=== PATIENT | female | born 1935 | race Caucasian/White ===

== ENCOUNTER 2023-09-24 13:44 | Emergency (ER) | payer BC, MEDICAID ==
[~2023-09-24] VITALS: Ht 152.4 cm; Wt 53.9 kg
[~2023-09-24 13:44] MED LIST: CALC0.2511; DILT120C46 PO; ESOM40CA PO; ESTR0.3T10 PO; HYDR12.522 PO; LIDO700A47 TP
[2023-09-24 13:51] VITALS: BP 123/75; PULSE 80; RESP 16; TEMP 98.2; O2SAT 99
== END 2023-09-24 16:40 | disposition left against medical advice (07) ==
LOC: ER 13:44
DX: I10 Essential (primary) hypertension (principal); Z53.21 Procedure and treatment not carried out due to patient leaving prior to being seen by health care provider
CPT/HCPCS: 99281

== ENCOUNTER 2024-05-16 13:39 | Emergency (ER) | payer BC, MEDICAID ==
[~2024-05-16] VITALS: Ht 152.4 cm; Wt 53.0 kg
[2024-05-16 14:39] LABS: BASOPHILS # (AUTO) 0.1 X10'3 (0-0.2); BASOPHILS % (AUTO) 0.9 % (0-1); EOSINOPHILS # (AUTO) 0.1 X10'3 (0-0.9); EOSINOPHILS % (AUTO) 0.8 % (0-6); HEMATOCRIT 45.8 % (35.0-45.0); HEMOGLOBIN 15.1 g/dl (12.0-16.0); LYMPHOCYTES # (AUTO) 2.5 X10'3 (1.1-4.8); LYMPHOCYTES % (AUTO) 27.7 % (21-51); MEAN CORPUSCULAR HEMOGLOBIN 27.8 PG (27.0-31.0); MEAN CORPUSCULAR VOLUME 84.4 FL (78-98); MEAN PLATELET VOLUME 8.2 FL (7.4-10.4); MONOCYTES # (AUTO) 0.5 X10'3 (0-0.9); MONOCYTES % (AUTO) 5.3 % (2-12); NEUTROPHILS # (AUTO) 5.8 X10'3 (1.8-7.7); NEUTROPHILS % (AUTO) 65.3 % (42-75); PLATELET COUNT 317 X10'3 (140-440); RED BLOOD COUNT 5.43 X10'6 (4.20-5.60); RED CELL DISTRIBUTION WIDTH 15.4 % (11.5-14.5); WHITE BLOOD COUNT 8.9 X10'3 (4.5-11.0)
[2024-05-16 15:03] LABS: ALBUMIN 3.6 G/DL (3.4-5.0); ANION GAP 7 (8-16); BLOOD UREA NITROGEN 12 MG/DL (7-18); BUN/CREATININE RATIO 19.7 (10.0-20.0); CALCIUM 9.2 MG/DL (8.5-10.1); CHLORIDE 105 MMOL/L (99-107); CREATININE 0.61 MG/DL (0.40-0.90); GLUCOSE 103 MG/DL (70-104); POTASSIUM 3.8 MMOL/L (3.5-5.1); PRO BRAIN NATRIURETIC PEPTIDE 831 PG/ML (0-450); SODIUM 141 MMOL/L (135-145); TOTAL CARBON DIOXIDE 29.2 MMOL/L (24-32); eCRCL 48 ML/MIN; eGFR > 90 ML/MIN
[2024-05-16] MEDS ORDERED: LOSA1TAB39 PO (16:11)
[2024-05-16] MEDS: hydrALAZINE 20mg/ml inj. IV ONE ×2 (16:56→18:21)
[2024-05-16 18:21] VITALS: BP 162/57; PULSE 78; RESP 15; TEMP 97.6; O2SAT 96
== END 2024-05-16 18:38 | disposition home or self-care (01) ==
LOC: ER 13:40
DX: I10 Essential (primary) hypertension (principal); Z88.8 Allergy status to other drugs, medicaments and biological substances; Z79.899 Other long term (current) drug therapy
CPT/HCPCS: 36415; 71045; 80048; 83880; 84484; 85025; 93005; 96374; 96376; 99285; J0360

== ENCOUNTER 2024-10-25 15:24 | Emergency (ER) | payer BC, MEDICAID ==
[~2024-10-25] VITALS: Ht 152.4 cm; Wt 55.0 kg
[~2024-10-25 15:24] MED LIST changes: +LOSA1TAB39 PO
[2024-10-25 15:39] VITALS: TEMP 98.2
[2024-10-25 16:04] LABS: BASOPHILS # (AUTO) 0.1 X10'3 (0-0.2); BASOPHILS % (AUTO) 0.9 % (0-1); EOSINOPHILS # (AUTO) 0.3 X10'3 (0-0.9); EOSINOPHILS % (AUTO) 2.8 % (0-6); HEMATOCRIT 42.3 % (35.0-45.0); HEMOGLOBIN 14.4 g/dl (12.0-16.0); LYMPHOCYTES # (AUTO) 2.6 X10'3 (1.1-4.8); LYMPHOCYTES % (AUTO) 22.9 % (21-51); MEAN CORPUSCULAR HEMOGLOBIN 29.7 PG (27.0-31.0); MEAN CORPUSCULAR HGB CONC 34.1 g/dL (33.0-36.5); MEAN CORPUSCULAR VOLUME 87.1 FL (78-98); MEAN PLATELET VOLUME 8.8 FL (7.4-10.4); MONOCYTES # (AUTO) 0.6 X10'3 (0-0.9); MONOCYTES % (AUTO) 5.3 % (2-12); NEUTROPHILS # (AUTO) 7.6 X10'3 (1.8-7.7); NEUTROPHILS % (AUTO) 68.1 % (42-75); PLATELET COUNT 304 X10'3 (140-440); RED BLOOD COUNT 4.86 X10'6 (4.20-5.60); RED CELL DISTRIBUTION WIDTH 14.2 % (11.5-14.5); WHITE BLOOD COUNT 11.1 X10'3 (4.5-11.0)
[2024-10-25 16:31] LABS: ALANINE AMINOTRANSFERASE 19 U/L (12-78); ALBUMIN 3.4 G/DL (3.4-5.0); ALBUMIN/GLOBULIN RATIO 0.9 (1.1-1.5); ALKALINE PHOSPHATASE 96 IU/L (46-116); ANION GAP 7 (8-16); ASPARTATE AMINO TRANSFERASE 16 U/L (10-37); BILIRUBIN,TOTAL 0.5 MG/DL (0.1-1.0); BLOOD UREA NITROGEN 25 MG/DL (7-18); BUN/CREATININE RATIO 37.3 (10.0-20.0); CALCIUM 8.4 MG/DL (8.5-10.1); CHLORIDE 104 MMOL/L (99-107); CREATININE 0.67 MG/DL (0.40-0.90); GLUCOSE 115 MG/DL (70-104); POTASSIUM 3.5 MMOL/L (3.5-5.1); PRO BRAIN NATRIURETIC PEPTIDE 179 PG/ML (0-450); SODIUM 138 MMOL/L (135-145); TOTAL CARBON DIOXIDE 27.1 MMOL/L (24-32); TOTAL PROTEIN 7.1 G/DL (6.4-8.2); eCRCL 42 ML/MIN; eGFR 83 ML/MIN
[2024-10-25] MEDS ORDERED: iohexol 300mg/ml 100ml inj. ONE (16:58)
[2024-10-25 17:00] VITALS: BP 168/84; PULSE 87; O2SAT 98
[2024-10-25 17:45] VITALS: RESP 18
== END 2024-10-25 19:51 | disposition home or self-care (01) ==
LOC: ER 15:25
DX: R07.89 Other chest pain (principal); I10 Essential (primary) hypertension; Z88.8 Allergy status to other drugs, medicaments and biological substances; Z79.899 Other long term (current) drug therapy
CPT/HCPCS: 36415; 71045; 71260; 80053; 83880; 84484; 85025; 93005; 99285; Q9967

== ENCOUNTER 2025-05-09 09:26 | Inpatient (IN) | payer BC, MEDICAID ==
[~2025-05-09] VITALS: Ht 162.6 cm; Wt 48.0 kg
--- NOTE | 2025-05-09 09:36 | ELECTROCARDIOGRAPH REPORT ---
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 Marko Aaron Measurements Intervals [place] Rate: 77 P: 52 ME: 161 QRS: -23 QRSD: 109 T: 58 QT: 475 QTc: 538 Interpretive Statements Sinus rhythm Atrial premature complexes Borderline left axis deviation Probable anteroseptal infarct, recent ST elevation, consider inferior injury Lateral leads are also involved Prolonged QT interval Baseline wander in lead(s) V3 Electronically Signed On 05-09-2025 22:10:[address] Marko Aaron Please click the below link to view image of tracing.
--- NOTE | 2025-05-09 09:51 | Physician Documentation ---
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 She has had increasing ALOC over the past several days. Paramedics were summoned and they found her clutching her chest. She reportedly complained of chest pain to them. Medication Reconciliation Allergies: Coded Allergies: menthol (Verified Allergy, Unknown, 05/09/25) Uncoded Allergies: DULOXETINE HCL (Allergy, Unknown, 09/03/23) QUETIAPINE FUMARATE (Allergy, Unknown, 09/03/23) TRAZADONE (Allergy, Unknown, 09/03/23) Scheduled Calcitriol (Calcitriol), DAILY, (Reported) Diltiazem Hcl* (Dilt-Cd), 300 MG PO DAILY, (Reported) Esomeprazole Mag Trihydrate* (Nexium*), 40 MG PO AC, (Reported) Estrogens,Conjugated* (Premarin*), 1.25 MG PO DAILY, (Reported) Hydrochlorothiazide* (Microzide*), 25 MG PO DAILY, (Reported) Losartan/Hydrochlorothiazide (Losartan-Hctz 100-25 Mg Tab), 1 TAB PO DAILY Scheduled PRN Lidocaine (Lidocaine), 2 PATCH TP DAILY PRN for chest pain Past Medical History Past Medical History: No Pertinent History, Hypertension Past Surgical History: noncontributory Drug Use: none Lives In: Home Review of Systems ROS Constitutional: Denies chills, fatigue, fever, weight gain or weight loss. HEENT: Denies hearing loss, sinus pressure or visual changes. Respiratory: Denies cough, shortness of breath or wheezing. Cardiovascular: Chest pain Gastrointestinal: Denies abdominal pain, blood in stool, constipation, diarrhea, heartburn, loss of appetite, nausea or vomiting. Genitourinary: Denies painful urination (dysuria), excessive amount of urine (polyuria) or urinary frequency. Metabolic/Endocrine: Denies cold intolerance, heat intolerance, excessive thirst (polydipsia) or excessive hunger (polyphagia). Neurological: Denies dizziness, extremity numbness, extremity weakness, headaches, seizures or tremors. Psychiatric: Denies anxiety or depression. Integumentary: Denies breast discharge, breast lump, hives, mole change(s), rash or skin lesion. Musculoskeletal: Denies back pain, joint pain, joint swelling or neck pain. Hematologic: Denies easily bleeding, easily bruises, lymphedema or issues with blood clots. Immunologic: Denies food allergies or seasonal allergies. Physical Exam Physical Exam Vital Signs: Temperature: 97.7, Source: Oral, Heart Rate: 100, Respiratory Rate: 18, BP: 101/34, Pulse Oximetry: 97, Weight: 48.000 Oxygen Flow Rate: 0 Physical Exam Physical Exam Vitals and nursing note reviewed. Constitutional: General: Patient is awake, alert, oriented x 4 in no acute distress and well appearing. Speech is clear and lucid. Appearance: Normal appearance. Patient is not ill-appearing, toxic-appearing or diaphoretic. HENT: Head: Normocephalic and atraumatic. Mouth/Throat: Mouth: Mucous membranes are moist. Pharynx: Oropharynx is clear. Eyes: General: No scleral icterus. Extraocular Movements: Extraocular movements intact. Pupils: Pupils are equal, round, and reactive to light. Neck: Supple, no Kernig or Brudzinski sign. Cardiovascular: Rate and Rhythm: Normal rate and regular rhythm. Heart sounds: No murmur heard. Pulmonary: Effort: No respiratory distress. Breath sounds: No wheezing, rhonchi or rales. Abdominal: General: There is no distension. Palpations: There is no fluid wave, hepatomegaly or mass. Tenderness: There is no abdominal tenderness. There is no guarding. Musculoskeletal: General: No swelling or deformity. Skin: Coloration: Skin is not jaundiced. Findings: No erythema or rash. Neurological: Mental Status: Patient is alert. Progress Results/Orders Results/Orders Orders - CORIE PAREDES MD Urinalysis, Cult If Indicated (05/09/25 09:45) LA (05/09/25 09:45) Ammonia (05/09/25 09:45) Straight Cath For Urine Sample (05/09/25 09:45) Potassium Cl 10meq/100ml Bag (Potassium (05/09/25 10:20) Potassium Cl 10meq/100ml Bag (Potassium (05/09/25 10:20) Page Hospitalist (05/09/25 10:23) Normal Saline 1000ml (0.9% Sodium Chlori (05/09/25 10:30) Completed Orders - CORIE PAREDES MD Cbc/Diff (05/09/25 10:02) Potassium Cl 20meq/15ml Oral (Potassium (05/09/25 10:18) Medications Received in ER Medications (Trade) Dose Ordered Sig/Rickey Route PRN Reason Start Time Stop Time Status Last Admin Dose Admin Potassium Chloride 100 ml @ 100 mls/hr Q1H IV 05/09/25 10:20 05/09/25 11:19 05/09/25 10:34 100 MLS/HR (POTASSIUM Cl 20mEq/15mL oral solution) 40 meq ONCE STAT PO 05/09/25 10:18 05/09/25 10:29 DC 05/09/25 10:34 40 MEQ Sodium Chloride 1,000 ml @ 1,000 mls/hr ONCE ONCE IV 05/09/25 10:30 05/09/25 11:29 05/09/25 10:35 1,000 MLS/HR Vital Signs 05/09/25 09:28 Temp 97.7 Pulse 100 Resp 18 B/P (MAP) 101/34 Pulse Ox 97 O2 Flow Rate 0 Laboratory Tests Test 05/09/25 09:39 05/09/25 09:58 05/09/25 10:29 CBC Comment Sodium Level 126 L Potassium Level 2.2 *L Chloride Level 88 L Carbon Dioxide Level 19.8 L Anion Gap 18 H Blood Urea Nitrogen 55 H Creatinine 1.66 H Estimated GFR/1.73 m2 29 BUN/Creatinine Ratio 33.1 H Glucose Level 210 H Calcium Level 8.7 Troponin I High Sensitivity 237 *H Pro-B-Type Natriuretic Peptide 5320 H Albumin 2.5 L Chemistry Comments Ammonia < 10 L White Blood Count 16.5 H Red Blood Count 4.28 Hemoglobin 12.3 Hematocrit 35.2 Mean Corpuscular Volume 82.2 Mean Corpuscular Hemoglobin 28.7 Mean Corpuscular Hemoglobin Concent 34.9 Red Cell Distribution Width 13.3 Platelet Count 401 Mean Platelet Volume 7.7 Neutrophils (%) (Auto) 88.5 H Lymphocytes (%) (Auto) 4.8 L Monocytes (%) (Auto) 6.4 Eosinophils (%) (Auto) 0.1 Basophils (%) (Auto) 0.2 Neutrophils # (Auto) 14.6 H Lymphocytes # (Auto) 0.8 L Monocytes # (Auto) 1.1 H Eosinophils # (Auto) 0.0 Basophils # (Auto) 0.0 Medical Decision Making Findings This 89-year-old female with a history of failure to thrive presents with progressive ALOC over the past several days. There was some question as to whether she might be having chest pain, as well. EKG medically necessary in the evaluation of chest pain and interpreted by me at the time of patient evaluation. Rhythm is sinus rhythm with a rate of 95, supraventricular bigeminy. Borderline left axis deviation possible anteroseptal infarct Impression: Abnormal EKG. CHEST X-RAY FINDINGS: X-rays were interpreted by me. The lungs are clear. The cardiac and mediastinal contours are within normal limits. There is no evidence of pulmonary vascular congestion, pleural effusions or pneumothorax. The bony thorax appears grossly intact. IMPRESSION: Normal radiographic examination of the chest with no acute cardiopulmonary abnormality. The patient's potassium came back at 2.2 and her troponin at 237. I will get her admitted. Departure Disposition: ADMITTED INPATIENT Admitted to Inpatient Unit: to hospitalist Admission Level of Care: PCU with Tele Impression: Primary Impression: NSTEMI (non-ST elevated myocardial infarction) Additional Impression: Hypokalemia Condition: Fair Referrals: NO PRIMARY CARE PROVIDER (PCP) Signature Scribe Signature: . Attestation: . CORIE PAREDES MD May 09, 2025 09:51
--- NOTE | 2025-05-09 10:02 | RADIOLOGY REPORT ---
CHEST RADIOGRAPH Indication: CP Technique: Single frontal view of the chest was obtained Comparison: CT CT CHEST W/ IV CONTRAST on DOS: 10/25/24, DI CHEST,SINGLE VIEW on DOS: 10/25/24, DI CHES T,SINGLE VIEW on DOS: 05/16/24, DI CHEST,SINGLE VIEW on DOS: 09/03/23 FINDINGS: Lines and Tubes: None Lungs: No focal consolidation. Pleura: Small left pleural effusion No pneumothorax. Cardiomediastinal contours: Cardiomegaly Bones: No acute osseous abnormality. IMPRESSION: Cardiomegaly with CHF Small left pleural effusion
[2025-05-09 10:11] LABS: CREATININE 1.66 MG/DL (0.40-0.90); TOTAL CARBON DIOXIDE 19.8 MMOL/L (24-32); eCRCL 18 ML/MIN; eGFR 29 ML/MIN
[2025-05-09 10:16] LABS: PRO BRAIN NATRIURETIC PEPTIDE 5320 PG/ML (0-450)
[2025-05-09] MEDS: potassium CL 10mEq/100ml bag 100 ML IV SCH ×2 (10:34→12:10)
[2025-05-09] MEDS: POTASSIUM CHLORIDE 20 MEQ/15 ML oral solution PO STA (10:34)
[2025-05-09] MEDS: normal saline 1000ml 1,000 ML IV ONE (10:35)
[2025-05-09 10:39] LABS: MEAN PLATELET VOLUME 7.7 FL (7.4-10.4); RED CELL DISTRIBUTION WIDTH 13.3 % (11.5-14.5)
[2025-05-09] MEDS ORDERED: magnesium sulf-water 4G/100mL 100 ML IV PRN (10:50)
[2025-05-09] MEDS ORDERED: HYDROcodone/acetaminophen 5mg/325mg tablet PO PRN (10:50)
[2025-05-09] MEDS ORDERED: HYDROcodone/acetaminophen 10/325mg tab PO PRN (10:50)
[2025-05-09] MEDS ORDERED: magnesium hydroxide 30ml (MOM) UD suspension PO PRN (10:50)
[2025-05-09] MEDS ORDERED: magnesium sulf-water 2g/50mL 50 ML IV PRN (10:50)
[2025-05-09] MEDS ORDERED: potassium Cl 40MEQ/1/2NS 520ml 520 ML IV PRN (10:50)
[2025-05-09] MEDS ORDERED: mag hydrox/Alum hydrox/simeth 30ml oral suspension PO PRN (10:50)
[2025-05-09] MEDS ORDERED: ondansetron/PF 4mg/2ml inj IV PRN (10:50)
[2025-05-09 10:57] LABS: LACTIC SEPSIS 0.9 MMOL/L (0.4-2.0)
[2025-05-09] MEDS: normal saline 1000ml 1,000 ML IV SCH (12:10)
--- NOTE | 2025-05-09 12:26 | RADIOLOGY REPORT ---
EXAM: CT CT HEAD INDICATION: confusion TECHNIQUE: CT of the head without intravenous contrast. Radiation Dose : 1. Head: CT Dose: CTDI volume is 50 mGy. Dose-length product is 1122.6 mGy*cm The dose indicators for CT are the volume Computed Tomography (CT) Dose Index (CTDIvol) and the Dose Length Product (DLP), and are measured in units of mGy and mGy-cm, respectively. These indicators are not patient dose, but values generated from the CT scanner acquisition factors. The report includes radiation exposure data for exposures received during this examination. COMPARISON: None FINDINGS: There is no evidence of acute intracranial hemorrhage, extra-axial collection, mass effect, midline s hift, herniation or hydrocephalus. The ventricles, sulci and cisterns are age appropriate. The velasquez-white differentiation is intact. Patchy periventricular and subcortical white matter hypoattenuation is nonspecific but may be related to small vessel ischemic disease. The visualized paranasal sinuses and mastoid air cells are clear. The surrounding soft tissues and osseous structures are unremarkable. IMPRESSION: No acute intracranial abnormality. Radiation optimization: All CT scans at this facility use at least one of these dose optimization mikey hniques: automated exposure control mA and/or kV adjustment per patient size (includes targeted exam s where dose is matched to clinical indication) or iterative reconstruction.
--- NOTE | 2025-05-09 12:38 | ELECTROCARDIOGRAPH REPORT ---
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 Marko Aaron Measurements Intervals [place] Rate: 85 P: 52 AL: 160 QRS: -25 QRSD: 96 T: 38 QT: 362 QTc: 431 Interpretive Statements Sinus rhythm Multiple ventricular premature complexes Borderline left axis deviation Lateral infarct, acute Borderline ST elevation, anterior leads Electronically Signed On 05-09-2025 22:10:[address] Marko Aaron Please click the below link to view image of tracing.
--- NOTE | 2025-05-09 12:42 | HISTORY AND PHYSICAL-Residence ---
History & Physical Providers to CC Resident Creating Document: AD MCDONALDNACHO, RES ~ History of Present Illness Primary Medical Doctor: Shantell DIA. [facility] Reason for Admit\Complaint: Chest pain History of Present Illness 89-year-old female was brought into the ER by her daughter Lillie Gomez (phone number: [phone]) complaining of increased work of breathing and chest discomfort since today morning after waking up at 6:30 a.m. The patient is hard of hearing but was oriented to time, place and person during the examination. History was given by her daughter. According to the daughter the patient pointed to the chest and the daughter noticed an alteration in her breathing pattern. The daughter also mentioned that the patient has had bowel and bladder incontinence since four days with two episodes of diarrhea. The diarrhea episodes where described as a brownish stools. The daughter describes urine as brownish in color. The patient has had decreased food and water intake since the last four days. The patient has kyphosis due to which she has pain in her back and left side of the chest since many years. The daughter also mentioned that the patient has had waxing and waning mentation since four months. She describes her disorientation as talking to her mother, not oriented to the place sometimes. But she has never been diagnosed with dementia officially. The patient and patient's daughter currently denies bluish discoloration of the lips or extremities, abdominal pain, blood in the urine and no froth, fever or night sweats. Allergies: Coded Allergies: menthol (Verified Allergy, Unknown, 05/09/25) Uncoded Allergies: DULOXETINE HCL (Allergy, Unknown, 09/03/23) QUETIAPINE FUMARATE (Allergy, Unknown, 09/03/23) TRAZADONE (Allergy, Unknown, 09/03/23) Home Medications Home Medications Active Losartan-Hctz 100-25 Mg Tab (Losartan/Hydrochlorothiazide) 100 Mg-25 Mg Tablet 1 Tab PO DAILY 30 Days Lidocaine 5 % Adh..patch 2 Patch TP DAILY PRN Reported Microzide* (Hydrochlorothiazide) 12.5 Mg Capsule 25 Mg PO DAILY Dilt-Cd (Diltiazem HCl) 120 Mg Cap.sr.24h 300 Mg PO DAILY Premarin* (Estrogens Conjugated) 0.3 Mg Tablet 1.25 Mg PO DAILY Nexium* (Esomeprazole Magnesium) 40 Mg Capsule 40 Mg PO AC Calcitriol 0.25 Mcg Capsule DAILY Past Medical History Past Medical History The patient was diagnosed with glaucoma and she is following an educational technologist from [facility] for the same. Hypertension. Type 2 diabetes mellitus. Cystocele a s/p surgical repair five years ago. GERD. Colon cancer Past Surgical History Surgical History Comment The patient has undergone large bowel resection of approximately 1 ft after being diagnosed with colon cancer 15 years ago. Her last colonoscopy which was approximately five years ago was normal and she was not scheduled for anymore colonoscopies after that. Cystocele s/p surgical repair five years ago. The patient has had multiple episodes of melanoma for which she has undergone resection in the past. Family History Family History: FH: hyperlipidemia son daughter Past Social History Smoking: Non-Smoker Alcohol Use: Rarely Drug Use: None Lives with: Other (Lives with her daughter Lillie Gomez (phone number: [phone])) Lives In: Home Occupation: retired Domestic Violence: Neg ROS All Other Systems: Reviewed and Negative Exam Vitals: Vital Signs Date Time Temp Pulse Resp B/P (MAP) Pulse Ox O2 Delivery O2 Flow Rate FiO2 05/09/25 12:11 97.7 87 16 138/109 (119) 96 0 Physical exam: General: Well alert, well oriented, confused at times, not agitated, not in acute distress, well cooperated during the physical. HEENT: Conjunctive are pink, sclerae clear, no icterus, right eye strabismus, pupil is equal in both sides, reactive to light, no ear discharge, no pharyngeal erythema or an edema. Neck: Supple, no JVD, no lymphadenopathy and thyromegaly. Chest: Equal air entry on both lungs, no additional sounds no rhonchi no wheezing at the moment. Cardiovascular: S1-S2 regular sinus rhythm and, regular rate, no gallops, no rubs, no murmurs Abdomen: No visible peristalsis, Bowel sounds present on auscultation, soft, nontender, no guarding, no rigidity Extremities: No pitting edema bilaterally, capillary refill intact, peripheral pulsations are intact on both sides Central Nervous System: No focal neurological deficits, no motor or sensory weakness in all 4 extremities, could move all 4 extremities, 2+ deep tendon reflexes, negative Babinski. Musculoskeletal: Presence of arthritic changes in bilateral feet, lateral deviation of the toes, kyphosis, no tenderness. Skin: Warm and dry. Diagnostic Data Last Recorded Lab Results: 05/09/25 1029 05/09/25 0939 Advance Care Planning Advanced Care plannin - 30 Minutes (I spent a total of 17 minutes on reviewing various resuscitative measures/ACP with the patient at the time of admission. The patient has decided on a DNR code status.) Additional Plan Assessment: 89-year-old patient was brought to the ER by her daughter in view of chest discomfort an alteration in her breathing pattern. Chest pain: NSTEMI: ABDULAZIZ score: 4. 20% risk at 14 days of all cause mortality, new or recurrent [place]. Heart score: 7 The patient came to the hospital with chief complaint of chest pain. EKG: Sinus rhythm, left axis deviation, normal IN interval, normal QRS. Troponin levels trending down: 236-219. NT proBNP [address] Toussaint consulted: Recommends medical therapy. Plan: Aspirin 81 mg daily. Atorvastatin 40 mg daily. Nitroglycerin 0.4 mg sublingual as needed for chest pain. Heparin 5000 units subcutaneous t.i.d. Beta-radha not started now due to soft blood pressure. Acute kidney injury likely due to hypovolemia: Creatinine 1.66. BUN 55, BUN/creatinine ratio 33.1. Plan: Follow-up urine lytes. Normal saline at 20 mL/hour Hypertension: Current blood pressure 100/46 Plan: Holding blood pressure medications. Type 2 diabetes mellitus: Hemoglobin A1C 6.8, glucose 210 Plan: Hyperglycemia/hypoglycemia protocol in place. Short-acting insulin low-dose sliding scale. Leukocytosis: Likely reactive: Elevated C-reactive protein at 21.58 Procalcitonin: 0.89. CRP: 21.58. Chest x-ray: Cardiomegaly with CHF. Small left pleural effusion Plan: Follow-up CBC. Follow-up urinalysis. Follow-up blood cultures. Hypokalemia and hyponatremia: Potassium levels of 2.2 which raised to 3.0 after potassium correction given any ER Repeat potassium levels after 6 hours. Potassium correction according to protocol. Plan:Follow-up urine sodium and osmolality, serum osmolality. On NS at 20 mL/hour. Code status: DNR DVT prophylaxis: Heparin Analgesia/sedation: Morphine/[place] Line/tube: PIV GI prophylaxis: Protonix. Nutrition: Regular diet PT: Ordered Prognosis: Guarded Disposition: The patient will be admitted to PCU with telemetry. Nacho Mcdonald Internal Medicine Resident [facility] Date of Service: May 09, 2025 Billing Provider: TESHA MARTINEZ MD Common Visit Codes: 41840-[id number] INP/OBS CARE (HIGH) NACHO ACEVEDO, RES May 09, 2025 12:42 TESHA MARTINEZ MD May 09, 2025 19:52
[2025-05-09] MEDS: POTASSIUM CHLORIDE 20 MEQ/15 ML oral solution PO SCH (15:26)
--- NOTE | 2025-05-09 15:26 | CONSULTATION REPORT ---
Cardiac Consultation Report Providers to CC ~ Subjective Subjective Cardiology consultation: Daughter is present at bedside. The patient is deaf has to have large retinas written has she has advanced glaucoma and can not see she is decrepit not walk on her own power she came in for chest pain she does have chronic chest pains. High blood count is elevated urinalysis is pending. Echocardiogram is pending. She was noted to have marked hypokalemia with abnormal electrocardiogram perhaps secondary to the same. She has trivial troponin rise. She is completely pain-free lying in bed repeating the question are you going to help me are you here to help me. Daughter confirms that the patient does have dementia with agitation at night sun downers. Allergies include menthol duloxetine QT of pain trazodone. Medications include diltiazem Nexium Premarin Microzide losartan with hydrochlorothiazide. Lidocaine patch. She lives with the daughter. Objective Vitals Vital Signs Date Time Temp Pulse Resp B/P (MAP) Pulse Ox O2 Delivery O2 Flow Rate FiO2 05/09/25 14:42 97.7 87 14 100/46 (64) 97 0 Lab Results: 05/09/25 1029 05/09/25 1421 Objective Carotid bruit chest clear to auscultation percussion heart no murmur heard peripheral pulses are palpable no edema. Anxious appearance. Appears her stated age. Other Results Echocardiogram shows nonspecific intraventricular conduction defect variable ST elevation V1 through V3. Second EKG less artifact and improved. Problem\Assessment\Plan Additional Plan Impression: Patient had heart catheterization in 2012 for an abnormal stress test by Dr. Tien Champagne and the catheterization was reported as normal. Chest x-ray reports calcification atherosclerosis of the aorta and undoubtedly she has calcification of her coronary arteries at least. Altered level of consciousness is more like likely due to a urinary tract infection however it may have been ischemic. Considering her dementia deafness blindness decrepit status unable to walk on her own power I would recommend no coronary angiography irrespective of her hospital course and no resuscitation in case of sudden cardiac . Recommendation: 1. Medical therapy only patient not a candidate for coronary angiography or any surgical cardiac procedures 2. DNR status with no cardiopulmonary resuscitation supportive care only with medical therapy. 3. Daughter asks about hospice care and I told her that that is only recommended if we expect two for sit to left six months or less. 4. Patient may require placement. We will sign off as I have nothing cardiac to add to the patient management AUSTIN PRIDE MD May 09, 2025 15:26
[2025-05-09] MEDS ORDERED: glucagon, human recombinant 1mg kit SUBCUT PRN (17:10)
[2025-05-09] MEDS ORDERED: dextrose 50%-water 50ml dispensing syringe IV PRN ×2 (17:10)
[2025-05-09] MEDS ORDERED: DEXTROSE 15 GM of carb/4 tabs (each vial/BOTTLE has 4 tablets) PO PRN ×2 (17:10)
[2025-05-09 17:30] VITALS: BP 102/45; PULSE 92; RESP 20; TEMP 97.9; O2SAT 99
[2025-05-09] MEDS ORDERED: LOSA25TA41 PO (17:34)
[2025-05-09] MEDS ORDERED: METF-900 PO (17:34)
[2025-05-09] MEDS ORDERED: ERYT1OIN6 (17:34)
[2025-05-09] MEDS ORDERED: EMPA25TA PO (17:34)
[2025-05-09] MEDS ORDERED: NETA2.5D EACHEYE (17:34)
[2025-05-09] MEDS ORDERED: DORZ1DRO7 EACHEYE (17:34)
[2025-05-09] MEDS ORDERED: ESOM40CA66 PO (17:34)
[2025-05-09] MEDS ORDERED: BIMA2.5D EACHEYE (17:34)
[2025-05-09] MEDS ORDERED: BIMA5DRO4 EACHEYE (17:34)
[2025-05-09] MEDS ORDERED: OMEP20CA16 PO (17:34)
[2025-05-09] MEDS ORDERED: ATOR10TA70 PO (17:34)
[2025-05-09 18:00] VITALS: BP 102/37; PULSE 86; RESP 22; TEMP 97.5; O2SAT 97
[2025-05-09] MEDS: pantoprazole 40mg Tablet.DR PO SCH (18:06)
--- NOTE | 2025-05-09 19:12 | CARDIOLOGY REPORT ---
APPROVED REPORT EXAM: Comprehensive 2D, Doppler, and color-flow Echocardiogram. 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 187.4 cm/s AoV VTI 36.7 cm AO Peak GR. 14.0 mmHg AO Mean GR. 7 mmHg LVOT VTI 27.20 cm LVOT Peak Blake. 131.2 cm/s LEN(VTI)/BSA 2.13 cm2/m2 LEN (VTI) 2.13 cm2 Mitral Valve MV E Velocity 111.6 cm/s MV Peak Gr. 6 mmHg MV DECEL TIME 268 ms MV A Velocity 102.3 cm/s MV PHT 68 ms E/A Ratio 1.1 MVA (PHT) 3.24 cm2 MV PNub440.1 cm/s TDI Medial E' P. V 8.29 cm/s E/Medial E' 13.5 Tricuspid Valve TR P. Velocity 286 cm/s RAP ESTIMATE 10 mmHg TR Peak Gr. 33 mmHg RVSP 43 mmHg Pulmonary Vein S1 Velocity 46.7 cm/s D2 Velocity 27.1 cm/s PVa Blkxfnhy39.8 cm/s PVa [id number] msec LEFT VENTRICLE LV is small in size with normal wall thickness. Overall systolic function is hyperdynamic. LVEF is 75 %. RIGHT VENTRICLE RV appears normal in size and contractility. RVSP is estimated at 43 mmHG. ATRIA The left atrium size is normal. AORTIC VALVE Trileaflet AV appears sclerotic without stenosis. No insufficiency. MITRAL VALVE MV is thickened with mild annular calcification and no stenosis. Trace mitral regurgitation. TRICUSPID VALVE The tricuspid valve is normal in structure. Mild to moderate tricuspid regurgitation. PULMONIC VALVE The pulmonary valve is normal in structure. Trace pulmonic regurgitation. GREAT VESSELS The aortic root is normal in size. The ascending aorta is normal in size. The IVC is normal in size a nd collapses >50% with inspiration. PERICARDIUM Small circumferential pericardial effusion with no evidence of hemodynamic compromise. Pleural effusi on. Other Information Study Quality: Adequate Conclusion LV is small in size with normal wall thickness. Overall systolic function is hyperdynamic. LVEF is 75 %. RV appears normal in size and contractility. RVSP is estimated at 43 mmHG. The left atrium size is normal. Trileaflet AV appears sclerotic without stenosis. No insufficiency. MV is thickened with mild annular calcification and no stenosis. Trace mitral regurgitation. The tricuspid valve is normal in structure. Mild to moderate tricuspid regurgitation. The pulmonary valve is normal in structure. Trace pulmonic regurgitation. Small circumferential pericardial effusion with no evidence of hemodynamic compromise.
[2025-05-09 20:00] VITALS: RESP 18; O2SAT 96
[2025-05-09] MEDS: K and/or MAG REPLACEMENT MC SCH (20:00)
[2025-05-09] MEDS ORDERED: heparin, porcine 5000 units/ml vial SQ SCH (20:00)
[2025-05-09] MEDS: INSULIN LISPRO 100 UNIT/ML INSULN.PEN MULTI-DOSE SQ SCH (21:00)
[2025-05-09 22:00] VITALS: BP 107/50; PULSE 94; RESP 24; TEMP 97.4; O2SAT 99
[2025-05-09] MEDS: potassium Cl 20 mEq SR tablet PO PRN (22:03)
[2025-05-09] MEDS: heparin, porcine 5000 units/ml vial SQ SCH (22:10)
[2025-05-10] VITALS (8 sets, daily range): BP systolic 95–146; BP diastolic 49–65; PULSE 61–96; RESP 14–22; TEMP 97–98.6; O2SAT 96–99
[2025-05-10] MEDS: potassium Cl 20 mEq SR tablet PO PRN (03:26)
[2025-05-10 04:20] LABS: OSMOLALITY UA 479 MOSM/K (50-1400)
[2025-05-10 04:37] LABS: LEUKOCYTE ESTERASE ,URINE NEGATIVE (Neg); NITRITES, URINE POSITIVE (Neg); OCCULT BLOOD,URINE NEGATIVE (Neg)
[2025-05-10 04:42] LABS: UA COLLECTION TYPE NON-SPECIFIED
[2025-05-10 04:43] LABS: CREATININE,URINE RANDOM 28.0 MG/DL; TOTAL PROTEIN,URINE RANDOM 36.3 MG/DL; UA UREA RANDOM 630.0 MG/DL; URINE AMPHETAMINE SCREEN NEGATIVE (Neg); URINE BARBITUATE SCREEN NEGATIVE (Neg); URINE BENZODIAZEPINES SCREEN NEGATIVE (Neg); URINE CANNABINOID SCREEN NEGATIVE (Neg); URINE COCAINE SCREEN NEGATIVE (Neg); URINE METHADONE SCREEN NEGATIVE (Neg); URINE OPIATE SCREEN NEGATIVE (Neg); URINE PHENCYCLIDINE SCREEN NEGATIVE (Neg)
[2025-05-10 04:54] LABS: SQUAMOUS EPITHELIAL CELL,UR NONE SEEN /LPF (FEW)
[2025-05-10 06:27] LABS: UA EOSINOPHILS NO EOS /HPF
[2025-05-10 07:32] LABS: MEAN PLATELET VOLUME 8.5 FL (7.4-10.4); RED CELL DISTRIBUTION WIDTH 13.6 % (11.5-14.5)
[2025-05-10] MEDS ORDERED: POTASSIUM CHLORIDE 20 MEQ/15 ML oral solution PO SCH (08:00)
[2025-05-10] MEDS: dorzolamide/timolol (Cosopt) ophthalmic drops 10ml bottle EACHEYE SCH (08:00)
[2025-05-10 08:17] LABS: CREATININE 1.07 MG/DL (0.40-0.90); PRO BRAIN NATRIURETIC PEPTIDE 3632 PG/ML (0-450); TOTAL CARBON DIOXIDE 18.0 MMOL/L (24-32); eCRCL 28 ML/MIN; eGFR 49 ML/MIN
[2025-05-10 08:42] LABS: CHOL/HDL RATIO 3.2 (0.00-4.99); LDL CHOLESTEROL 69 MG/DL (50-100)
[2025-05-10] MEDS: CefTRIAXone/D5W-Rocephin 1gm 50 ML IV SCH (09:01)
[2025-05-10] MEDS: lactobacillus rhamnosus 10,000 MMU CELLS/CAPSULE PO SCH (09:02)
[2025-05-10] MEDS: aspirin 81mg, enteric-coated 1 TAB TABLET.DR PO SCH (09:03)
[2025-05-10 10:44] LABS: OCCULT BLOOD STOOL NEGATIVE (Neg)
--- NOTE | 2025-05-10 12:26 | PROGRESS NOTE- Residence ---
Progress Note - Resident Providers to CC Resident Creating Document: MARIANA BURROWS RES ~ Antibiotic Timeout Antibiotic Ordered?: Yes Subjective Patient was evaluated bedside. Communicated with the patient by writing on a board since she is hard of hearing. Patient was orientedX4 at the time of examination. Patient complains of pain in the left chest radiating to her left shoulder blades and left arm. Grades the pain as a 2 on the intensity scale from 1-10. Had one episode of diarrhea today morning. No complaints of abdominal pain, breathlessness, fever, night sweats. Objective Vital Signs Date Time Temp Pulse Resp B/P (MAP) Pulse Ox O2 Delivery O2 Flow Rate FiO2 05/10/25 11:00 97.2 92 17 111/61 (78) 97 Room Air 05/09/25 15:19 0 Physical exam: General: Well alert, well oriented, not confused, not agitated, not in acute distress, well cooperated during the physical. HEENT: Conjunctive are pink, sclerae clear, no icterus, pupil is equal in both sides, reactive to light, no ear discharge, no pharyngeal erythema or an edema. Neck: Supple, no JVD, no lymphadenopathy and thyromegaly. Chest: Equal air entry on both lungs, no additional sounds no rhonchi no wheezing at the moment. Cardiovascular: S1-S2 regular sinus rhythm and, regular rate, no gallops, no rubs, no murmurs Abdomen: No visible peristalsis, Bowel sounds present on auscultation, soft, nontender, no guarding, no rigidity Extremities: Interphalangeal joint deformities in bilateral lower extremities signifying arthritic changes, no pitting edema bilaterally, capillary refill intact, peripheral pulsations are intact on both sides Central Nervous System: No focal neurological deficits, no motor or sensory weakness in all 4 extremities, could move all 4 extremities, 2+ deep tendon reflexes, negative Babinski. Musculoskeletal: No joint swelling, deformities, inflammations, and no scoliosis and back tenderness Skin: Warm and dry. Result Diagram: 05/10/25 0658 05/10/25 7766 Assessment Assessment Assessment: 89-year-old patient was brought to the ER by her daughter in view of chest discomfort an alteration in her breathing pattern. NSTEMI: Chronic diastolic Congestive heart failure with preserved ejection fraction: ABDULAZIZ score: 4. 20% risk at 14 days of all cause mortality, new or recurrent ND. Heart score: 7 The patient came to the hospital with chief complaint of chest pain. EKG: Sinus rhythm, left axis deviation, normal MO interval, normal QRS, mild ST changes likely due hypokalemia. ECHO: LV is small in size with normal wall thickness. Overall systolic function is hyperdynamic. LVEF is 75%. Chest x-ray: Cardiomegaly with CHF. Small left pleural effusion Troponin levels trending down: 236-219. NT proBNP [address] Toussaint consulted: Recommends medical therapy. Plan: Aspirin 81 mg daily. Atorvastatin 40 mg daily. Nitroglycerin 0.4 mg sublingual as needed for chest pain. Heparin 5000 units subcutaneous t.i.d. Beta-radha not started now due to soft blood pressure. Acute kidney injury likely due to vasomotor nephropathy. Creatinine 1.66. BUN 55, BUN/creatinine ratio 33.1. FeNa 1.5 fractional excretion of urea: 83% pointing towards intrinsic kidney injury. Plan: 05/10/2025: Normal saline at 20 mL/hour Urinary tract infection: Urine bacteria 2+, urine nitrite positive, urine leukocyte esterase negative, urine occult blood negative Leukocytosis, Likely reactive: Elevated C-reactive protein at 21.58 Procalcitonin: 0.89. CRP: 21.58. 05/10/2025: Leukocytosis resolved. Follow up on urine culture Started on antibiotic IV ceftriaxone 1 g Acute Diarrhea: 05/10/2025: Sent stool samples for routine and culture, WBC count, occult blood. Hydration with normal saline at 20 mL/hour. Hypertension: Current blood pressure 100/46 05/10/2025: Current blood pressure 111/61 Plan: Holding blood pressure medications. Type 2 diabetes mellitus: Hemoglobin A1C 6.8, glucose 210 05/10/2025: Current glucose levels 181 Plan: Hyperglycemia/hypoglycemia protocol in place. Short-acting insulin low-dose sliding scale. Hypokalemia and hyponatremia: Potassium levels of 2.2 which raised to 3.0 after potassium correction given any ER Repeat potassium levels after 6 hours. Potassium correction according to protocol. 05/10/2025: Potassium levels at 3.0. Sodium levels 137. Urine specific gravity 1.01, urine osmolality 479, urine sodium 54 Hyponatremia resolved. Potassium correction according to protocol in place. Code status: DNR DVT prophylaxis: Heparin Analgesia/sedation: Morphine/[place]/tube: PIV GI prophylaxis: Protonix. Nutrition: Regular diet PT: Ordered Prognosis: Guarded Disposition: Continue medical management. Mariana Burrows PGY1, Internal Medicine. Addendum construction site manager Nidhi spoke to patient's family members and they agreed for comfort care and hospice. Patient will be likely discharged on hospice tomorrow Date of Service: May 10, 2025 Billing Provider: TESHA MARTINEZ MD Common Visit Codes: [id number] INP/OBS CARE(HIGH) MARIANA BURROWS, RES May 10, 2025 12:26 TESHA MARTINEZ MD May 10, 2025 19:54
--- NOTE | 2025-05-10 14:48 | RADIOLOGY REPORT ---
CLINICAL INDICATION: left shoulder pain TECHNIQUE: DI SHOULDER, COMPLETE (MIN 2 VWS) Comparison: None FINDINGS/IMPRESSION: : There is no evidence of acute fracture or dislocation. Soft tissues are unremarkable.
[2025-05-11 02:00] VITALS: BP 132/58; PULSE 91; RESP 18; TEMP 97.8; O2SAT 98
[2025-05-11 06:00] VITALS: BP 152/65; PULSE 90; RESP 21; TEMP 97.3; O2SAT 93
[2025-05-11 06:37] LABS: CREATININE 0.82 MG/DL (0.40-0.90); TOTAL CARBON DIOXIDE 19.8 MMOL/L (24-32); eCRCL 37 ML/MIN; eGFR 66 ML/MIN
[2025-05-11 06:47] LABS: MEAN PLATELET VOLUME 8.2 FL (7.4-10.4); RED CELL DISTRIBUTION WIDTH 13.8 % (11.5-14.5)
[2025-05-11] MEDS: magnesium Cl slow-release 64mg tablet PO PRN (09:37)
[2025-05-11 11:00] VITALS: BP 135/55; PULSE 97; RESP 23; TEMP 96.9; O2SAT 98
--- NOTE | 2025-05-11 18:03 | DISCHARGE SUMMARY-Residence ---
Discharge Summary Providers to CC Resident Creating Document: AD MCDONALDNACHO DURAN, RES ~ Discharge Summary Admission Diagnosis: Chest pain Hospital Course DATE OF ADMISSION: 05/09/2025 DATE OF DISCHARGE: 05/11/2025 Discharge Diagnosis\Comment: NSTEMI: Chronic diastolic Congestive heart failure with preserved ejection fraction Acute kidney injury likely due to vasomotor nephropathy. Urinary tract infection Acute Diarrhea Hypertension Type 2 diabetes mellitus Hypokalemia and hyponatremia Operations\Procedures: None Consultants: Cardiology, Dr. Toussaint Complications: None Condition on DC: Stable Continued Medications: Bimatoprost (Lumigan) 0.01 % Drops EACHEYE Dorzolamide/Timolol/Pf (Dorzolamide-Timolol 2%-0.5%) 2 %-0.5 % Droperette 1 DROP EACHEYE BID Erythromycin Base Opth. Ointment* (Erythromycin Opth. Ointment*) 1 Gm Tube Netarsudil Mesylate (Rhopressa) 0.02 % Drops EACHEYE Discharge Summary: HPI: 89-year-old female was brought into the ER by her daughter Lillie Gomez (phone number: [phone]) complaining of increased work of breathing and chest discomfort since today morning after waking up at 6:30 a.m. The patient is hard of hearing but was oriented to time, place and person during the examination. History was given by her daughter. According to the daughter the patient pointed to the chest and the daughter noticed an alteration in her breathing pattern. The daughter also mentioned that the patient has had bowel and bladder incontinence since four days with two episodes of diarrhea. The diarrhea episodes where described as a brownish stools. The daughter describes urine as brownish in color. The patient has had decreased food and water intake since the last four days. The patient has kyphosis due to which she has pain in her back and left side of the chest since many years. The daughter also mentioned that the patient has had waxing and waning mentation since four months. She describes her disorientation as talking to her mother, not oriented to the place sometimes. But she has never been diagnosed with dementia officially. The patient and patient's daughter currently denies bluish discoloration of the lips or extremities, abdominal pain, blood in the urine and no froth, fever or night sweats. Hospital course: 89-year-old female patient came to the hospital with chief complaint of chest pain. The patient was admitted with a diagnosis of NSTEMI. Cardiology was consulted who did not recommend any procedure at this time, further discussion regarding code status was done with patient and family members. Initially the patient decided for DNR. The patient was noted with urinary tract infection and treatment was started, echocardiogram was obtained which shows some signs of diastolic congestive heart failure, and medical treatment was started for NSTEMI as per cardiology recommendation. Further discussion regarding code status was taking again with family members by case management. Hospice care was requested. Family members patient agreed with the decision. The patient was changed to DNR with comfort care. The patient will be discharged to home with hospice. Discharge course: The patient will be discharged with the following instructions: Continue management as per hospice team. Continue Eye drops Bimatoprost, dorzolamidetimolol. Physical exam: General: Well alert, well oriented, confused at times, not agitated, not in acute distress, well cooperated during the physical. HEENT: Conjunctive are pink, sclerae clear, no icterus, right eye strabismus, pupil is equal in both sides, reactive to light, no ear discharge, no pharyngeal erythema or an edema. Neck: Supple, no JVD, no lymphadenopathy and thyromegaly. Chest: Equal air entry on both lungs, no additional sounds no rhonchi no wheezing at the moment. Cardiovascular: S1-S2 regular sinus rhythm and, regular rate, no gallops, no rub s, no murmurs Abdomen: No visible peristalsis, Bowel sounds present on auscultation, soft, nontender, no guarding, no rigidity Extremities: No pitting edema bilaterally, capillary refill intact, peripheral pulsations are intact on both sides Central Nervous System: No focal neurological deficits, no motor or sensory weakness in all 4 extremities, could move all 4 extremities, 2+ deep tendon reflexes, negative Babinski. Musculoskeletal: Presence of arthritic changes in bilateral feet, lateral deviation of the toes, kyphosis, no tenderness. Skin: Warm and dry. Vital Signs Date Time Temp Pulse Resp B/P (MAP) Pulse Ox O2 Delivery O2 Flow Rate FiO2 05/11/25 11:00 96.9 97 23 135/55 (81) 98 Room Air 05/11/25 08:00 0.0 Laboratory Tests Test 05/09/25 18:21 05/09/25 21:46 05/10/25 03:35 05/10/25 06:58 Potassium Level 3.2 MMOL/L 3.0 MMOL/L Glucometer 119 mg/dl Urine Specimen Description Non-specified Urine Color Yellow Urine Clarity Clear Urine pH 6.0 Urine Specific [place] 1.010 Urine Protein Negative mg/dl Urine Glucose (UA) >=1000 mg/dl Urine Ketones 15 mg/dl Urine Occult Blood Negative Urine Nitrite Positive Urine Bilirubin Negative Urine Urobilinogen 0.2 E.U/dL Urine Leukocyte Esterase Negative Urine RBC None seen /HPF Urine WBC 0-4 /HPF Urine Squamous Epithelial Cells None seen /LPF Urine Bacteria 2+ /HPF Urine Culture Indicated Indicated Volume Urine Centrifuged 3 ml Urine Eosinophils No eos /HPF Urine Osmolality 479 MOSM/K Urine Random Creatinine 28.0 MG/DL Urine Random Total Protein 36.3 MG/DL Urine Random Sodium 54 MEQ/L Urine Random Urea 630.0 MG/DL Urine Comment Low volume Urine Opiates Screen Negative Urine Methadone Screen Negative Urine Fentanyl Screen Negative Urine Barbiturates Screen Negative Urine Phencyclidine Screen Negative Urine Amphetamines Screen Negative Urine Benzodiazepines Screen Negative Urine Cocaine Screen Negative Urine Cannabinoids Screen Negative Drug Screen Comment White Blood Count 9.9 X10'3 Red Blood Count 4.33 X10'6 Hemoglobin 12.6 g/dl Hematocrit 36.0 % Mean Corpuscular Volume 83.1 FL Mean Corpuscular Hemoglobin 29.2 PG Mean Corpuscular Hemoglobin Concent 35.1 g/dL Red Cell Distribution Width 13.6 % Platelet Count 440 X10'3 Mean Platelet Volume 8.5 FL Neutrophils (%) (Auto) 78.4 % Lymphocytes (%) (Auto) 12.7 % Monocytes (%) (Auto) 8.0 % Eosinophils (%) (Auto) 0.5 % Basophils (%) (Auto) 0.4 % Neutrophils # (Auto) 7.7 X10'3 Lymphocytes # (Auto) 1.3 X10'3 Monocytes # (Auto) 0.8 X10'3 Eosinophils # (Auto) 0.0 X10'3 Basophils # (Auto) 0.0 X10'3 CBC Comment Sodium Level 137 MMOL/L Chloride Level 104 MMOL/L Carbon Dioxide Level 18.0 MMOL/L Anion Gap 15 Blood Urea Nitrogen 29 MG/DL Creatinine 1.07 MG/DL Estimated GFR/1.73 m2 49 ML/MIN BUN/Creatinine Ratio 27.1 Glucose Level 148 MG/DL Calcium Level 8.6 MG/DL Magnesium Level 1.5 MG/DL Total Bilirubin 0.6 MG/DL Aspartate Amino Transf (AST/SGOT) 13 U/L Alanine Aminotransferase (ALT/SGPT) 14 U/L Alkaline Phosphatase 80 IU/L Pro-B-Type Natriuretic Peptide 3632 PG/ML Total Protein 6.6 G/DL Albumin 2.4 G/DL Globulin 4.2 G/DL Albumin/Globulin Ratio 0.6 Triglycerides Level 115 MG/DL Cholesterol Level 146 MG/DL LDL Cholesterol 69 MG/DL HDL Cholesterol 46 MG/DL Cholesterol/HDL Ratio 3.2 Thyroid Stimulating Hormone (TSH) 2.14 ulU/ml Chemistry Comments Test 05/10/25 07:23 05/10/25 09:00 05/10/25 11:42 05/10/25 13:38 Glucometer 160 mg/dl 181 mg/dl Stool Occult Blood Negative Potassium Level 3.5 MMOL/L Test 05/10/25 14:05 05/10/25 17:25 05/10/25 20:25 05/11/25 05:29 Glucometer 136 mg/dl 137 mg/dl 235 mg/dl White Blood Count 9.7 X10'3 Red Blood Count 4.36 X10'6 Hemoglobin 12.5 g/dl Hematocrit 36.7 % Mean Corpuscular Volume 84.1 FL Mean Corpuscular Hemoglobin 28.8 PG Mean Corpuscular Hemoglobin Concent 34.2 g/dL Red Cell Distribution Width 13.8 % Platelet Count 467 X10'3 Mean Platelet Volume 8.2 FL Neutrophils (%) (Auto) 71.7 % Lymphocytes (%) (Auto) 18.0 % Monocytes (%) (Auto) 7.9 % Eosinophils (%) (Auto) 1.8 % Basophils (%) (Auto) 0.6 % Neutrophils # (Auto) 7.0 X10'3 Lymphocytes # (Auto) 1.7 X10'3 Monocytes # (Auto) 0.8 X10'3 Eosinophils # (Auto) 0.2 X10'3 Basophils # (Auto) 0.1 X10'3 CBC Comment Erythrocyte Sedimentation Rate 71 MM/HR Sodium Level 142 MMOL/L Potassium Level 3.7 MMOL/L Chloride Level 110 MMOL/L Carbon Dioxide Level 19.8 MMOL/L Anion Gap 12 Blood Urea Nitrogen 17 MG/DL Creatinine 0.82 MG/DL Estimated GFR/1.73 m2 66 ML/MIN BUN/Creatinine Ratio 20.7 Glucose Level 176 MG/DL Osmolality 296 MOSM/K Calcium Level 8.8 MG/DL Magnesium Level 1.4 MG/DL Total Bilirubin 0.5 MG/DL Aspartate Amino Transf (AST/SGOT) 19 U/L Alanine Aminotransferase (ALT/SGPT) 12 U/L Alkaline Phosphatase 78 IU/L C-Reactive Protein 11.35 MG/DL Total Protein 6.6 G/DL Albumin 2.4 G/DL Globulin 4.2 G/DL Albumin/Globulin Ratio 0.6 Chemistry Comments Test 05/11/25 08:00 05/11/25 09:34 05/11/25 11:55 Procalcitonin 0.14 NG/ML Glucometer 232 mg/dl 185 mg/dl Shoulder x-ray: There is no evidence of acute fracture or dislocation. Soft tissues are unremarkable. Head CT scan: No acute intracranial abnormality. Echocardiogram: LV is small in size with normal wall thickness. Overall systolic function is hyperdynamic. LVEF is 75%. RV appears normal in size and contractility. RVSP is estimated at 43 mmHG. Chest x-ray: Cardiomegaly with CHF. Small left pleural effusion *Problems/Diagnosis: (1) XOCHITL (acute kidney injury) Status: Acute (2) NSTEMI (non-ST elevated myocardial infarction) Status: Acute (3) Hypokalemia Status: Acute (4) Urinary tract infection Status: Acute Total Time Spent on D/C: > 30 Minutes Date of Service: May 11, 2025 Billing Provider: TESHA MARTINEZ MD Common Visit Codes: 95954-QFA/OBS DISCH DAY >30min NACHO ACEVEDO, RES May 11, 2025 18:02 TESHA MARTINEZ MD May 11, 2025 18:55
== END 2025-05-11 13:10 | disposition hospice, home (50) | DRG 280 ==
LOC: ER 09:27 → ED HOLD 10:55 → PCU 3S 17:06
PROVIDERS: ADMIT Internal Medicine; ATTEND Internal Medicine
DX: I21.4 Non-ST elevation (NSTEMI) myocardial infarction (principal); N17.0 Acute kidney failure with tubular necrosis; N39.0 Urinary tract infection, site not specified; E87.1 Hypo-osmolality and hyponatremia; I50.32 Chronic diastolic (congestive) heart failure; E44.0 Moderate protein-calorie malnutrition; Z68.1 Body mass index [BMI] 19.9 or less, adult; Z66 Do not resuscitate; E87.6 Hypokalemia; F03.90 Unspecified dementia, unspecified severity, without behavioral disturbance, psychotic disturbance, mood disturbance, and anxiety; I11.0 Hypertensive heart disease with heart failure; K21.9 Gastro-esophageal reflux disease without esophagitis; D72.829 Elevated white blood cell count, unspecified; E11.9 Type 2 diabetes mellitus without complications; R19.7 Diarrhea, unspecified; Z79.899 Other long term (current) drug therapy; Z88.8 Allergy status to other drugs, medicaments and biological substances; Z51.5 Encounter for palliative care
CPT/HCPCS: 36415; 70450; 71045; 73030; 80048; 80053; 80061; 80305; 81001; 82140; 82272; 82570; 82948; 83036; 83605; 83735; 83880; 83930; 83935; 84132; 84145; 84156; 84300; 84443; 84484; 84540; 85025; 85651; 86140; 87040; 87045; 87046; 87081; 87088; 87207; 89055; 93005; 93306; 96365; 96366; 96372; 99285; C1758; G0378; J0696; J1644; J1815; J3480; J7030